=== PATIENT | male | born 1960 ===

== ENCOUNTER 2024-08-16 11:17 | Emergency (ER) | payer MEDICAID ==
[2024-08-16 11:56] LABS: HEMATOCRIT 38.6 % (40.0-54.0); HEMOGLOBIN 12.8 g/dL (14.0-18.0); MEAN CORPUSCULAR HEMOGLOBIN 29.6 pg (27.0-34.0); MEAN CORPUSCULAR HGB CONC 33.2 g/dL (33.0-35.0); MEAN CORPUSCULAR VOLUME 89.4 fL (80-100); PLATELET COUNT,PLT 167 10^3/uL (150-450); RED BLOOD CELL COUNT 4.32 10^6/uL (4.6-6.2); WHITE BLOOD CELL COUNT,WBC 5.9 10^3/uL (5.0-10.0)
[2024-08-16 11:58] LABS: EOSINOPHILS PERCENT AUTO 2.4 % (1.0-3.0); LYMPHOCYTES PERCENT AUTO 38.6 % (20.5-50.1); MONOCYTES PERCENT AUTO 8.8 % (2-8); NEUTROPHILS PERCENT AUTO 49.2 % (42.2-75.2)
[2024-08-16 12:13] LABS: KETONES,BLOOD NEGATIVE
[2024-08-16 12:15] LABS: LACTIC ACID 1.7 mmol/L (0.4-2.0)
[2024-08-16 12:21] LABS: EOSINOPHILS PERCENT MAN 3 % (1-3); LYMPHOCYTES PERCENT MAN 40 % (20-50); MONOCYTES PERCENT MAN 7 % (2-8); SEG NEUTROPHILS PERCENT MAN 50 % (42-75)
[2024-08-16 12:22] LABS: A/G RATIO 1.1; ALANINE AMINOTRANSFERASE,ALT 25 U/L (16-63); ALBUMIN 3.4 g/dL (3.4-5.0); ALKALINE PHOSPHATASE 100 U/L (46-116); ANION GAP 12.3 mEq/L (7-13); ASPARTATE AMNIOTRANSFERASE,AST 11 U/L (15-37); BILIRUBIN TOTAL 0.5 mg/dL (0.2-1.0); BLOOD UREA NITROGEN,BUN 18 mg/dL (7-18); BUN/CREATININE RATIO 16.4 (No establ ref range); CALCIUM 9.1 mg/dL (8.5-10.1); CARBON DIOXIDE,CO2 28 mmol/L (21-32); CHLORIDE,CL 95 mmol/L (98-107); MAGNESIUM 1.7 mg/dL (1.8-2.4); PHOSPHORUS 3.3 mg/dL (2.6-4.7); POTASSIUM,K 4.3 mmol/L (3.5-5.1); PROTEIN TOTAL,TP 6.5 g/dL (6.4-8.2); SODIUM,NA 131 mmol/L (136-145)
[2024-08-16 12:23] LABS: ESTIMATED GFR 75 mL/min (>=60); GLUCOSE RANDOM 701 mg/dL (70-99)
[2024-08-16] MEDS ORDERED: 50% Dextrose in Water 50 ML Syringe IVPUSH PRN (12:26)
[2024-08-16] MEDS ORDERED: Glucagon,Human Recombinant 1 MG Vial IM PRN (12:26)
[2024-08-16] MEDS: Insulin Regular, Human 100 Units/ML 10 ML Vial IV ONE (12:40)
[2024-08-16 12:45] LABS: HEMOGLOBIN A1C > 14.0 % (<5.7)
[2024-08-16] MEDS: NS + KCl 20mEq/L 1,000 ML IV SCH (12:53)
[2024-08-16 13:02] LABS: O2 DELIVERY DEVICE ROOM AIR
[2024-08-16 13:04] LABS: BASE EXCESS VENOUS -0.4 mmol/l ((-2)-(+3)); BICARBONATE,VENOUS 26 mmol/l (19-25); O2 SATURATION VENOUS 63.3 % (60-80); PCO2 VENOUS 51 mmHg (41-51); PH,VENOUS 7.33 (7.31-7.41); PO2 VENOUS 41 mmHg (35-42)
[2024-08-16 13:05] LABS: APPEARANCE,URINE CLEAR (CLEAR); BILIRUBIN,URINE NEGATIVE (NEGATIVE); COLOR,URINE YELLOW (YELLOW); GLUCOSE,URINE >=1000 (NEGATIVE); KETONES,URINE NEGATIVE (NEGATIVE); LEUKOCYTE ESTERASE,URINE NEGATIVE (NEGATIVE); NITRITE,URINE NEGATIVE (NEGATIVE); OCCULT BLOOD,URINE NEGATIVE (NEGATIVE); PROTEIN,URINE NEGATIVE (NEGATIVE); UROBILINOGEN,URINE 0.2 mg/dL (0.2-1.0)
== END 2024-08-16 15:18 | disposition home or self-care (01) ==
LOC: DL.ED 11:17
DX: E11.65 Type 2 diabetes mellitus with hyperglycemia (principal)
CPT/HCPCS: 36415; 80053; 81003; 82009; 82803; 82947; 83036; 83605; 83735; 84100; 85025; 96365; 96366; 99285; A9270; J3480; 99284

== ENCOUNTER 2024-08-17 20:23 | Emergency (ER) | payer MEDICAID ==
[2024-08-17 21:03] LABS: BASOPHILS PERCENT AUTO 0.4 % (0.0-1.0); EOSINOPHILS PERCENT AUTO 1.8 % (1.0-3.0); HEMATOCRIT 39.5 % (40.0-54.0); HEMOGLOBIN 12.8 g/dL (14.0-18.0); LYMPHOCYTES PERCENT AUTO 35.5 % (20.5-50.1); MEAN CORPUSCULAR HEMOGLOBIN 29.7 pg (27.0-34.0); MEAN CORPUSCULAR HGB CONC 32.4 g/dL (33.0-35.0); MEAN CORPUSCULAR VOLUME 91.6 fL (80-100); NEUTROPHILS PERCENT AUTO 54.3 % (42.2-75.2); PLATELET COUNT,PLT 179 10^3/uL (150-450); RED BLOOD CELL COUNT 4.31 10^6/uL (4.6-6.2); WHITE BLOOD CELL COUNT,WBC 5.5 10^3/uL (5.0-10.0)
[2024-08-17 21:12] LABS: ALANINE AMINOTRANSFERASE,ALT 22 U/L (16-63); ALBUMIN 3.3 g/dL (3.4-5.0); ALKALINE PHOSPHATASE 96 U/L (46-116); ANION GAP 14.5 mEq/L (7-13); ASPARTATE AMNIOTRANSFERASE,AST 11 U/L (15-37); BILIRUBIN TOTAL 0.5 mg/dL (0.2-1.0); BLOOD UREA NITROGEN,BUN 14 mg/dL (7-18); BUN/CREATININE RATIO 10.6 (No establ ref range); CALCIUM 9.4 mg/dL (8.5-10.1); CARBON DIOXIDE,CO2 26 mmol/L (21-32); CHLORIDE,CL 94 mmol/L (98-107); CREATININE 1.32 mg/dL (0.70-1.30); POTASSIUM,K 4.5 mmol/L (3.5-5.1); PROTEIN TOTAL,TP 6.5 g/dL (6.4-8.2); SODIUM,NA 130 mmol/L (136-145)
[2024-08-17 21:13] LABS: A/G RATIO 1.03; ESTIMATED GFR 61 mL/min (>=60)
[2024-08-17 21:14] LABS: GLUCOSE RANDOM 761 mg/dL (70-99)
[2024-08-17] MEDS ORDERED: Lactated Ringers 1,000 ML IV ONE (21:26)
[2024-08-17] MEDS: Insulin Glarg,Human.Rec.Analog 100 Unit/ML 10 ML Vial SUBCUT ONE (21:35)
[2024-08-17] MEDS ORDERED: 50% Dextrose in Water 50 ML Syringe IVPUSH PRN ×2 (21:36→23:11)
[2024-08-17] MEDS ORDERED: Insulin Lispro 100 Units/ML 3 ML Vial SUBCUT ONE (21:36)
[2024-08-17] MEDS ORDERED: Glucagon,Human Recombinant 1 MG Vial IM PRN ×2 (21:36→23:11)
[2024-08-17] MEDS: Sodium Chloride 0.9% 1,000 ML IV ONE (21:38)
[2024-08-17 21:49] LABS: APPEARANCE,URINE CLEAR (CLEAR); BILIRUBIN,URINE NEGATIVE (NEGATIVE); COLOR,URINE YELLOW (YELLOW); GLUCOSE,URINE 500 (NEGATIVE); KETONES,URINE NEGATIVE (NEGATIVE); LEUKOCYTE ESTERASE,URINE NEGATIVE (NEGATIVE); NITRITE,URINE NEGATIVE (NEGATIVE); OCCULT BLOOD,URINE NEGATIVE (NEGATIVE); PROTEIN,URINE NEGATIVE (NEGATIVE); UROBILINOGEN,URINE 0.2 mg/dL (0.2-1.0)
[2024-08-17] MEDS: Insulin Lispro 100 Units/ML 3 ML Vial SUBCUT ONE ×2 (22:02→23:20)
== END 2024-08-18 00:42 | disposition home or self-care (01) ==
LOC: DL.ED 20:23
DX: E11.65 Type 2 diabetes mellitus with hyperglycemia (principal); I10 Essential (primary) hypertension; Z79.4 Long term (current) use of insulin; Z79.899 Other long term (current) drug therapy; Z87.891 Personal history of nicotine dependence
CPT/HCPCS: 36415; 80053; 81003; 82009; 82947; 85025; 96360; 99284; 99285-25; J1815-GY; J7030